=== PATIENT | male | born 1965 | race Caucasian/White ===

== ENCOUNTER 2025-05-31 06:21 | Emergency (ER) | payer MEDICARE, MEDICAID, SELFPAY ==
[2025-05-31 06:23] VITALS: PULSE 75; O2SAT 98; BMI 28.2
[2025-05-31 06:36] VITALS: BP 165/110; PULSE 81; RESP 19; TEMP 36.7; O2SAT 99
--- NOTE | 2025-05-31 06:45 | EDNOTE_ITS ---
ED Extremity Problem RME/HPI General Chief complaint: Extremity Problem,Nontraumatic Stated complaint: LEG PAIN Time Seen by Provider: 05/31/25 06:22 Source: patient Arrival date/time: 05/31/25 06:21 60-year-old male with a history of arthritis presents to the emergency room with a chief complaint of lower extremity joint pain to the knee ankles toes and feet x 1 day Mode of arrival: ambulatory Limitations: no limitations Related Data Previous Rx's ?Medication ?Instructions ?Recorded ibuprofen 800 mg tablet 800 mg PO Q8H #30 tabs 05/31 Allergies Allergy/AdvReac Type Severity Reaction Status Date / Time No Known Allergies Allergy Verified 05/31/25 06:27 Review of Systems Review of Systems Systems Reviewed: All systems reviewed, normal except as documented Constitutional Constitutional: Reports system reviewed and no additional complaints, except as documented, Denies fatigue, Denies fever(s), Denies headache(s) and Denies weakness Eyes Eyes: Reports system reviewed and no additional complaints, except as documented, Denies blurry vision and Denies change in vision ENT Ears, Nose, Mouth, and Throat: Reports system reviewed and no additional complaints, except as documented, Denies otalgia, Denies headache(s), Denies nasal congestion, Denies throat swelling and Denies vertigo Cardiovascular Cardiovascular: Reports system reviewed and no additional complaints, except as documented, Denies chest pain, Denies dyspnea and Denies dyspnea on exertion Respiratory Respiratory: Reports system reviewed and no additional complaints, except as documented, Denies chest congestion, Denies cough, Denies dyspnea, Denies dyspnea on exertion and Denies wheezing Gastrointestinal Gastrointestinal: Reports system reviewed and no additional complaints, except as documented, Denies abdominal pain, Denies cramping, Denies nausea and Denies vomiting Genitourinary Genitourinary: Reports system reviewed and no additional complaints, except as documented, Denies dysuria and Denies hematuria Musculoskeletal Musculoskeletal: Reports system reviewed and no additional complaints, except as documented, Reports arthralgias, Denies back pain, Denies joint swelling, Denies limited range of motion and Denies numbness Integumentary/Breasts Skin/Breast: Reports system reviewed and no additional complaints, except as documented and Denies wounds Neurologic Neurologic: Reports system reviewed and no additional complaints, except as documented, Denies confusion, Denies headache(s), Denies lack of coordination, Denies numbness, Denies vertigo and Denies weakness Psychiatric Psychiatric: Reports system reviewed and no additional complaints, except as documented, Denies anxiety, Denies confusion, Denies depression, Denies paranoia, Denies suicidal ideation and Denies tactile hallucinations Endocrine Endocrine: Reports system reviewed and no additional complaints, except as documented and Denies fatigue Hematologic/Lymphatic Hematologic/Lymphatic: Reports system reviewed and no additional complaints, except as documented and Denies lymphadenopathy Allergic/Immunologic Allergic/Immunologic: Reports system reviewed and no additional complaints, except as documented, Denies throat swelling, Denies urticaria and Denies wheezing Past Medical History Social History SMOKING STATUS: Former smoker ED Exam General Limitations: Present no limitations General appearance: Present alert and in no apparent distress Head Head exam: Present atraumatic Eye Eye exam: Present normal appearance, PERRL and EOMI ENT ENT exam: Present normal exam, normal oropharynx and mucous membranes moist Neck Neck exam: Present normal inspection, full ROM and trachea midline Chest Chest inspection: Present normal inspection and symmetric chest wall rise Respiratory Respiratory exam: Present normal lung sounds bilaterally Cardiovascular Cardiovascular exam: Present regular rate, normal rhythm and normal heart sounds Abdominal Exam Abdominal exam: Present soft and normal bowel sounds Extremities Exam Extremities exam: Present normal inspection and full ROM Expanded Lower Extremity Exam Hip/Pelvis exam: Present normal inspection Upper leg exam: Present normal inspection Knee exam: Present tenderness Lower leg exam: Present tenderness Ankle exam: Present tenderness Foot/toe exam: Present tenderness Gait: observed and normal Back Exam Back exam: Present normal inspection and full ROM Neurological Exam Neurological exam: Present alert, oriented X3 and CN II-XII intact Psychiatric Psychiatric exam: Present normal affect and normal mood Skin Skin exam: Present warm, dry, intact and normal color Course Quality Measures none Orders Category Date Time Status Ketorolac Inj [Toradol Inj] Med 05/31/25 06:45 Discontinued 30 mg IM X1 ONE cloNIDine HCL [Catapres] Med 05/31/25 06:53 Discontinued 0.1 mg PO X1 ONE Vital Signs Vital signs: Vital Signs Temperature 98.1 F 05/31/25 06:36 Pulse Rate 81 05/31/25 06:36 Respiratory Rate 19 05/31/25 06:36 Blood Pressure 165/110 H 05/31/25 06:36 Pulse Oximetry (%) 99 05/31/25 06:36 Oxygen Delivery Method Room Air 05/31/25 06:36 Extremity Problem MDM Narrative MDM Narrative:: 60-year-old male with a history of arthritis presents to the emergency room with a chief complaint of lower extremity joint pain to the knee ankles toes and feet x 1 day Patient is hemodynamically stable and in no apparent distress. There is no redness warmth or swelling to any of his joints. His socks were removed and his feet were observed and there is no complications. Patient denies any trauma. Patient has a normal steady gait Medication was given to the patient and the patient was discharged Patient was discharged and educated to follow-up with primary care provider in the next 24 to 48 hours and return to the emergency room for any evidence of worsening signs or symptoms Patient data External records reviewed:: [facility] previous records Clinical information provided by:: patient Social determinants that could affect healthcare access:: none Patient has the following chronic illnesses:: Arthritis How is presenting disease/condition affected by chronic disease/condition?: exacerbated by Evaluation data The following diagnostics were reviewed and interpreted by me:: lab results and radiology exam(s) Lab and/or radiology exams considered but not ordered:: Labs and radiology exams considered and ordered Interpretation Summary: N/A Medications / Prescriptions Medications or Prescriptions considered but not ordered:: Medication given Medication administrations:: Medication Administration History Discontinued Medications Clonidine (Clonidine Hcl 0.1 Mg Tablet) 0.1 mg PO X1 ONE Stop: 05/31/25 06:54 Last Admin: 05/31/25 07:37 Dose: 0.1 mg Documented By: ARF Ketorolac Tromethamine (Ketorolac Inj 60 Mg/2 Ml Vial) 30 mg IM X1 ONE Stop: 05/31/25 06:46 Last Admin: 05/31/25 07:37 Dose: 30 mg Documented By: ARF Medication given Consultations Consultation(s) initiated? (list below): No Diagnosis Extremity Problem Differential Diagnosis: gout, cellulitis and other (Arthritis) Most likely diagnosis given after review of the tests above:: Arthritis Admission Indicated Admission indicated?: not indicated Admission Request Was there a request for admission?: No Disposition Plan Disposition Plan: Discharge Discharge Attestation Discharge Attestation: The patient and all family members were given an opportunity to ask questions and understood the discharge instructions. Discharge instructions specifically effects, indications for sooner follow up or return to the emergency department, and the expected course of current diagnosis. Patient condition: Stable Discharge Plan Plan Patient Disposition: HOME (Self Care) Discharge Disposition comment: Stable Prescriptions/Referrals Prescriptions/Med Rec: New ibuprofen 800 mg tablet 800 mg PO Q8H Qty: 30 0RF Problem List Clinical Impression: Arthritis Patient/Caregiver Discharge Instructions Print Language: Citizen Of The [place] Stand Alone Forms: Jaye Award Info., Patient Portal Info Letter
[2025-05-31 07:37] VITALS: BP 165/110; PULSE 81
[2025-05-31] MEDS: KETOROLAC INJ 60 MG/2 ML VIAL 30 MG IM (07:37)
== END 2025-05-31 08:43 | disposition home or self-care (01) ==
LOC: SERX 08:26
PROVIDERS: Emergency Provider Nurse Practitioner Family
DX: M19.90 Unspecified osteoarthritis, unspecified site (principal)
CPT/HCPCS: 96372; 99282; J1885; A9270

== ENCOUNTER 2025-06-01 02:34 | Emergency (ER) | payer MEDICARE, MEDICAID, SELFPAY ==
[2025-06-01 02:35] VITALS: BMI 28.2
[2025-06-01 02:45] VITALS: BP 155/91; PULSE 92; RESP 97; TEMP 36.6; O2SAT 97
--- NOTE | 2025-06-01 03:23 | PD.EDBACK ---
ED Back Injury Pain RME/HPI General Chief Complaint: Extremity Problem,Nontraumatic Stated Complaint: LEFT ANKLE, LOWER BACK, AND SHOULDER PAIN Time Seen by Provider: 06/01/25 02:52 Arrival date/time: 06/01/25 02:34 This is a case of 61-year-old male with multiple history of chronic pain to left shoulder left ankle and lower back pain and arthritis patient was here this morning and was treated for arthritis and was discharged with ibuprofen patient came back requested for a stronger medication aside from ibuprofen and Tylenol no injury no trauma denies any numbness weakness tingling sensation denies any incontinence to urine or stool Limitations: no limitations Related Data Previous Rx's ?Medication ?Instructions ?Recorded ibuprofen 800 mg tablet 800 mg PO Q8H #30 tabs 05/31/25 tramadol 50 mg tablet 50 mg PO Q8H PRN pain #8 tabs 06/01/25 Allergies Allergy/AdvReac Type Severity Reaction Status Date / Time No Known Allergies Allergy Verified 06/01/25 02:35 Review of Systems Review of Systems Systems Reviewed: All systems reviewed, normal except as documented Constitutional Constitutional: Reports system reviewed and no additional complaints, except as documented and Reports as per HPI Cardiovascular Cardiovascular: Reports system reviewed and no additional complaints, except as documented and Reports as per HPI Respiratory Respiratory: Reports system reviewed and no additional complaints, except as documented and Reports as per HPI Gastrointestinal Gastrointestinal: Reports system reviewed and no additional complaints, except as documented and Reports as per HPI Musculoskeletal Musculoskeletal: Reports system reviewed and no additional complaints, except as documented and Reports as per HPI Past Medical History Social History SMOKING STATUS: Current every day smoker ED Exam General Limitations: Present no limitations General appearance: Present alert, in no apparent distress and other (Patient is awake alert oriented not in distress nontoxic looking well-hydrated well-nourished) Head Head exam: Present atraumatic, normocephalic and normal inspection Eye Eye exam: Present normal appearance, PERRL and EOMI ENT ENT exam: Present normal exam, normal oropharynx and mucous membranes moist Neck Neck exam: Present normal inspection, full ROM and trachea midline; Absent tenderness, meningismus, lymphadenopathy or thyromegaly Chest Chest inspection: Present normal inspection and symmetric chest wall rise; Absent tenderness Respiratory Respiratory exam: Present normal lung sounds bilaterally; Absent respiratory distress, wheezes, stridor, accessory muscle use or prolonged expiratory phase Cardiovascular Cardiovascular exam: Present regular rate, normal rhythm and normal heart sounds; Absent bradycardia, tachycardia, irregular rhythm, systolic murmur or diastolic murmur Abdominal Exam Abdominal exam: Present soft and normal bowel sounds; Absent distention, tenderness, guarding, rebound, rigidity, diminished bowel sounds, hyperactive bowel sounds, hypoactive bowel sounds or organomegaly Extremities Exam Extremities exam: Present normal inspection and full ROM Expanded Upper Extremity Exam Shoulder exam: Present normal inspection and full ROM; Absent tenderness, swelling, abrasion, laceration, ecchymosis, deformity, crepitus, dislocation, erythema or tenderness over AC joint Expanded Lower Extremity Exam Ankle exam: Present normal inspection and full ROM; Absent tenderness, swelling, abrasion, laceration, ecchymosis, deformity, crepitus, dislocation, erythema, tenderness over talofibular lig or anterior draw sign Back Exam Back exam: Present normal inspection and full ROM; Absent tenderness, CVA tenderness (R), CVA tenderness (L), muscle spasm, paraspinal tenderness, vertebral tenderness, rashes, sciatic notch tenderness (R), sciatic notch tenderness (L), straight leg raise (R) or straight leg raise (L) Neurological Exam Neurological exam: Present alert, oriented X3, CN II-XII intact, normal gait and reflexes normal; Absent motor sensory deficit Psychiatric Psychiatric exam: Present normal affect and normal mood Skin Skin exam: Present warm, dry, intact and normal color Course Quality Measures none Orders Category Date Time Status Ketorolac Inj [Toradol Inj] Med 06/01/25 02:53 Once 30 mg IM X1 ONE Vital Signs Vital signs: Vital Signs Temperature 97.9 F 06/01/25 02:45 Pulse Rate 92 06/01/25 02:45 Respiratory Rate 97 H 06/01/25 02:45 Blood Pressure 155/91 H 06/01/25 02:45 Pulse Oximetry (%) 97 06/01/25 02:45 Oxygen Delivery Method Room Air 06/01/25 02:45 Oxygen saturation is 97% in room air normal Back Pain / Injury MDM Narrative MDM Narrative:: This is a case of 61-year-old male with multiple history of chronic pain to left shoulder left ankle and lower back pain and arthritis patient was here this morning and was treated for arthritis and was discharged with ibuprofen patient came back requested for a stronger medication aside from ibuprofen and Tylenol no injury no trauma denies any numbness weakness tingling sensation denies any incontinence to urine or stool physical examination patient is awake alert oriented not in distress nontoxic looking well-hydrated well-nourished exam on the left ankle left shoulder were normal no tenderness no swelling ROM intact sensory is intact pulses were full and equal capillary refill less than 2 seconds sensory is intact no redness no cellulitis patient exam on lower back is normal no crepitation no deformity ROM intact no lordosis no acute process leg raise exam is normal steady gait patient only wanted pain medication thus patient was given Toradol here in the emergency room and was prescribed only 8 tablets of tramadol patient was advised to follow-up with PCP to be referred to learning disabilities specialist for arthritis and to be referred to pain management for pain control at the time of exam no signs and symptoms of cauda equina patient will be discharged home in stable condition for any worsening symptoms or any emergent concern return precaution in the ER advsied Patient was discharged with comfortable condition walking with stable gait. Patient verbalized no further complains explained diagnosis and answered patient question. Patient is comfortable with the proposed management plan including the need to follow up with his/her primary care physician and any specialist if applicable Discussed patient for any urgent condition or worsening sx, He/She needed to go to emergency room immediately or call 911. Patient acknowledge the responsibility to follow up as instructed and to monitor her/his symptoms. For any persistence of the symptoms for more than 3-5 days return precaution advised. Discussed the result of the test and was given printed discharge instruction Patient data External records reviewed:: [facility] previous records Clinical information provided by:: patient Social determinants that could affect healthcare access:: none Patient has the following chronic illnesses:: None How is presenting disease/condition affected by chronic disease/condition?: no chronic disease Evaluation data The following diagnostics were reviewed and interpreted by me:: other (specify) (None) Lab and/or radiology exams considered but not ordered:: None Interpretation Summary: None Medications / Prescriptions Medications or Prescriptions considered but not ordered:: Given Medication administrations:: Medication Administration History Ketorolac Tromethamine (Ketorolac Inj 60 Mg/2 Ml Vial) 30 mg IM X1 ONE Stop: 06/01/25 02:54 Give Consultations Consultation(s) initiated? (list below): No Diagnosis Differential diagnosis back pain/injury: lumbar radiculopathy, sciatica and strain of lumbar region Most likely diagnosis given after review of the tests above:: Chronic back pain arthritis Admission Indicated Admission indicated?: not indicated Explain why admission is indicated or not indicated:: Not indicated Admission Request Was there a request for admission?: No Admission Attestation Admission request attestation: Not indicated Disposition Plan Disposition Plan: Discharge Discharge Attestation Discharge Attestation: The patient and all family members were given an opportunity to ask questions and understood the discharge instructions. Discharge instructions specifically effects, indications for sooner follow up or return to the emergency department, and the expected course of current diagnosis. Patient condition: Stable Discharge Plan Plan Patient Disposition: HOME (Self Care) Patient condition on transfer: Stable Prescriptions/Referrals Prescriptions/Med Rec: New tramadol 50 mg tablet 50 mg PO Q8H MDD max 4 tabs per day PRN (Reason: pain) Qty: 8 0RF No Action ibuprofen 800 mg tablet 800 mg PO Q8H Qty: 30 0RF Problem List Clinical Impression: Chronic pain, Arthritis Patient/Caregiver Discharge Instructions Education Materials: ED Chronic Pain, Osteoarthritis Additional Instructions: follow-up with your primary care physician in 2 days for reevaluation and to be referred to learning disabilities specialist for further evaluation and treatment of your arthritis and pain management doctor for pain pain control recurrence persistent worsening symptoms or any emergent concern call 911 or go to the nearest emergency room take your medication as directed Print Language: Kiswah[place] Stand Alone Forms: Jaye Award Info., Patient Portal Info Letter PA/NIKI Supervising Physician DYLAN/NIKI Supervising Physician: Dr. Bonilla
[2025-06-01] MEDS: KETOROLAC INJ 60 MG/2 ML VIAL 30 MG IM (03:53)
== END 2025-06-01 04:28 | disposition home or self-care (01) ==
PROVIDERS: Emergency Provider Emergency Medicine
DX: M15.9 Polyosteoarthritis, unspecified (principal)
CPT/HCPCS: 96372; 99282; J1885

== ENCOUNTER 2025-06-02 04:34 | Emergency (ER) | payer MEDICARE, MEDICAID, SELFPAY ==
[2025-06-02 04:42] VITALS: BP 144/85; PULSE 81; RESP 16; TEMP 36.7; O2SAT 98; BMI 28.8
--- NOTE | 2025-06-02 05:30 | EDRME_ITS ---
Rapid Medical Screening Exam RME Arrival date/time: 06/02/25 04:34 60M with history of HTN, alcohol use, and homelessness (recently came here from [place]) presents to ED with BLE numbness and 2 weeks of cough. Patient was here the past 2 days with no work-up. Chief Complaint: General Adult/Misc Complain Vital signs: Vital Signs Temperature 98.0 F 06/02/25 04:42 Pulse Rate 81 06/02/25 04:42 Respiratory Rate 16 06/02/25 04:42 Blood Pressure 144/85 H 06/02/25 04:42 Pulse Oximetry (%) 98 06/02/25 04:42 Oxygen Delivery Method Room Air 06/02/25 04:42 Exam: Disheveled. No open wounds on feet. Normal WOB. Clinical Impression: neuropathy vs DM vs drug use vs alcohol use vs CAP vs URI
--- NOTE | 2025-06-02 05:30 | XR_ITS ---
Upright PA and lateral chest films on 06/02/2025 at 538: Clinical indication 2 weeks of coughing FINDINGS: Heart mediastinum appear radiographically normal the lungs and pleural space are clear normal with the exception of a thin linear strand of discoid atelectasis in the right middle lobe located immediately adjacent to the upper margin of the major fissure. No pleural fluid is seen, no significant abnormality is are seen in the bony thorax. IMPRESSION: 1. There is a thick band of abnormal density slightly anterior to the major fissure in the right middle lobe 2. In view of the patient's symptoms of 2 weeks coughing, this probably represent a minimal area of atelectatic infiltrate. It is also possible it may represent minimal residual infiltrate from a previously slightly larger zone of pneumonia, which of course is not present on today's chest film, in this patient has been coughing for 2 weeks
[2025-06-02 06:15] LABS: Basophils # (Auto) 0.0 Thou/mm3 (0.0-0.2); Basophils % (Auto) 1 % (0-2.5); Eosinophils # (Auto) 0.0 Thou/mm3 (0.0-0.5); Eosinophils % (Auto) 0 % (0-10); Hematocrit 37.2 % (41.0-53.0); Hemoglobin 12.2 g/dL (13.5-16.0); Immature Granulocytes Auto 0.01 Thou/mm3 (0.00-0.00); Lymphocytes # (Auto) 1.8 Thou/mm3 (1.0-4.8); Lymphocytes % (Auto) 24 % (10-50); Mean Corpuscular HGB Conc 32.8 g/dl (31.0-37.0); Mean Corpuscular Hemoglobin 29.7 pg (25.0-35.0); Mean Corpuscular Volume 91 fL (80-100); Monocytes # (Auto) 1.0 Thou/mm3 (0.0-0.8); Monocytes % (Auto) 14 % (0-12); Neutrophils # (Auto) 4.5 Thou/mm3 (1.8-7.7); Neutrophils % (Auto) 61 % (37-80); Nucleated Red Blood Cell # 0.00 Thou/mm3 (0.00-0.00); Nucleated Red Blood Cell % 0 /100 WBC (0); Platelet Count 242 Thou/mm3 (140-440); RDW Standard Deviation 45.2 fL (35.1-43.9); Red Blood Count 4.11 Miln/mm3 (4.50-5.90); White Blood Count 7.4 Thou/mm3 (3.8-10.6)
[2025-06-02 06:35] LABS: Alanine Aminotransferase 16 U/L (10-49); Albumin, Serum 4.8 gm/dL (3.4-4.8); Albumin/Globulin Ratio 2.1 (1.2-2.2); Alcohol, Blood Medical < 3.0 mg/dL (0-10.0); Alkaline Phosphatase 87 U/L (46-116); Anion Gap 11 (7-16); Aspartate Amino Transferase 36 U/L (0-34); BUN/Creatinine Ratio 12 Ratio (12-20); Bilirubin,Total 0.5 mg/dL (0.3-1.2); Blood Urea Nitrogen 12 mg/dL (9-23); Calcium 9.1 mg/dL (8.3-10.6); Calcium (Corrected) 9.1 mg/dL (8.5-10.1); Carbon Dioxide 28.0 mMol/L (20.0-31.0); Chloride 106 mMol/L (98-107); Creatinine (Component) 1.0 mg/dL (0.6-1.3); Estimated Creatinine Clearance 97.7 mL/min (>60); Globulin 2.3 gm/dL (2.3-3.5); Glucose 127 mg/dL (74-106); Osmolality,Calculated 290 (275-295); Potassium 3.7 mMol/L (3.4-5.1); Sodium 145 mMol/L (136-145); Total Protein 7.1 gm/dL (5.7-8.2); eGFR > 60 See Note
[2025-06-02 06:43] LABS: Glucose Estimated Average 105 mg/dL (80-131); Hemoglobin A1C 5.3 % Hgb (4.8-6.0)
[2025-06-02 07:15] VITALS: BP 134/99; PULSE 86; RESP 16; O2SAT 96
[2025-06-02] MEDS: AZITHROMYCIN 250 MG TABLET 500 MG PO (07:58)
[2025-06-02] MEDS: Hydrocortisone Cr 2.5% 30 GM TUBE TOP (07:58)
[2025-06-02 08:48] VITALS: BP 161/87; PULSE 92; RESP 17; TEMP 36.7; O2SAT 99
--- NOTE | 2025-06-02 08:57 | PC.CC ---
Zee Benson was consulted by bedside DAMIÁN Hearn for community resources for patient. Zee BENSON made face to face contact with patient introduced self, role, and reason for visit to patient. He reports he is currently homeless but was staying at a local [facility] that was providing nursing home. Patient reports he would like community resources with nursing home information. [employer] provided patient with [facility] Community Resource Guide that included information to local shelters. Patient informed DAMIÁN Hearn he would like a ride to the post office upon being discharged. RUSSELL provided Dhiraj with information to local [facility] Transportation to set up transportation for patient upon being discharged.
--- NOTE | 2025-06-02 11:46 | EDNOTE_ITS ---
ED General RME/HPI General Chief complaint: General Adult/Misc Complain Stated complaint: BILATERAL LEG CRAMPING, COUGHING Time Seen by Provider: 06/02/25 07:14 Arrival date/time: 06/02/25 04:34 Limitations: no limitations RME / HPI RME / HPI narrative: 06/02/25 04:34 60M with history of HTN, alcohol use, and homelessness (recently came here from [place]) presents to ED with BLE numbness and 2 weeks of cough. Patient was here the past 2 days with no work-up. DR. HORVATH MAIN ED EVALUATION: 60 year old male who is currently homeless with a history of hypertension and arthritis presents to the ED for evaluation of bilateral lower extremity numbness beginning 2 weeks ago. Accompanied by a cramping sensation to both legs and pain to the left knee. Patient additionally complains of a cough beginning 2 weeks ago, lower back pain, and shoulder pain. Denies any fevers, chills, sweats, chest pain, shortness of breath, abdominal pain, n/v/d, or urinary symp toms. Exam: Disheveled. No open wounds on feet. Normal WOB. Impression: neuropathy vs DM vs drug use vs alcohol use vs CAP vs URI Related Data Previous Rx's ?Medication ?Instructions ?Recorded ibuprofen 800 mg tablet 800 mg PO Q8H #30 tabs 05/31 tramadol 50 mg tablet 50 mg PO Q8H PRN pain #8 tab s 06/01/25 azithromycin 500 mg tablet 500 mg PO QDAY 5 days #5 ta bs 06/02/25 gabapentin 300 mg capsule 300 mg PO QDAY NEUROPATHY #3 0 caps 06/02/25 hydrocortisone 2.5 % topical cream 1 applic topical BI D PRN itching 06/02/25 #28 grams Allergies Allergy/AdvReac Type Severity Reaction Status Date / Time No Known Allergies Allergy Verified 06/02/25 04:36 Review of Systems Review of Systems Systems Reviewed: All systems reviewed, normal except as documented Past Medical History Past Medical History CARDIAC: Positive Hypertension ENT: Positive Glaucoma Social History SMOKING STATUS: Current every day smoker ED Exam General Limitations: Present no limitations General appearance: Present alert and in no apparent distress Head Head exam: Present atraumatic, normocephalic and normal inspection Eye Eye exam: Present normal appearance, PERRL and EOMI ENT ENT exam: Present normal exam, normal oropharynx and mucous membranes moist Neck Neck exam: Present normal inspection, full ROM and trachea midline Chest Chest inspection: Present normal inspection and symmetric chest wall rise Respiratory Respiratory exam: Present normal lung sounds bilaterally Cardiovascular Cardiovascular exam: Present regular rate, normal rhythm and normal heart sounds Abdominal Exam Abdominal exam: Present soft and normal bowel sounds Extremities Exam Extremities exam: Present full ROM and other (There is a wart to the plantar aspect of the left foot ) Back Exam Back exam: Present normal inspection and full ROM Neurological Exam Neurological exam: Present alert, oriented X3 and CN II-XII intact Psychiatric Psychiatric exam: Present normal affect and normal mood Skin Skin exam: Present warm, dry, intact and normal color Course Quality Measures none Orders Category Date Time Status XR chest 2V Stat Exams 06/02/25 05:30 Completed A1C [Glycohemoglobin w (eAG)] Stat Lab 06/02/25 06:00 Completed Alcohol, Blood Medical Stat Lab 06/02/25 06:00 Completed CBC Stat Lab 06/02/25 06:00 Completed CMP [Comprehensive Metabolic Panel] Stat Lab 06/02/25 06:00 Completed Drug Screen,Urine Stat Lab 06/02/25 05:30 Ordered Urinalysis, C/S if Indicated Stat Lab 06/02/25 05:30 Ordered Azithromycin Po [Zithromax PO] Med 06/02/25 07:35 Discontinued 500 mg PO X1 ONE Hydrocortisone Cr 2.5% Med 06/02/25 07:35 Discontinued See Dose Instructions TOP X1 ONE Referral Marketing Research Coordinator NOW SS 06/02/25 07:36 Completed Vital Signs Vital signs: Vital Signs Temperature 98.0 F 06/02/25 04:42 Pulse Rate 81 06/02/25 04:42 Respiratory Rate 16 06/02/25 04:42 Blood Pressure 144/85 H 06/02/25 04:42 Pulse Oximetry (%) 98 06/02/25 04:42 Oxygen Delivery Method Room Air 06/02/25 04:42 Pulse ox is 98% on room air which is adequate. Discharge Plan Plan Patient Disposition: HOME (Self Care) Patient condition on transfer: Stable Prescriptions/Referrals Prescriptions/Med Rec: New gabapentin 300 mg capsule 300 mg PO QDAY MDD 1 Qty: 30 0RF hydrocortisone 2.5 % cream 1 applic topical BID MDD 2 APPLICATIONS PRN (Reason: itching) Qty: 28 0RF azithromycin 500 mg tablet 500 mg PO QDAY 5 Days Qty: 5 0RF No Action ibuprofen 800 mg tablet 800 mg PO Q8H Qty: 30 0RF tramadol 50 mg tablet 50 mg PO Q8H MDD max 4 tabs per day PRN (Reason: pain) Qty: 8 0RF Problem List Clinical Impression: Neuropathy, Plantar wart of left foot, Bronchitis Patient/Caregiver Discharge Instructions Discharge Activity: activity as tolerated Education Materials: What Is Peripheral Neuropathy, Understanding Plantar Warts, ED Upper Resp Infec Abx Tx, ED Neuropathy, Peripheral, ED Plantar Warts Additional Instructions: Follow-up with your doctor as scheduled. Take medications as prescribed. Print Language: [place] Stand Alone Forms: Jaye Award Info., Patient Portal Info Letter MDM Narrative MDM hospital course (for use when minimal MDM required): Josie Dubose am scribing for and in the presence of Dr. Horvath. Patient remains clinically stable throughout the emergency department visit. tax services professional was consulted and provided the patient with resources. We reviewed all the results, analysis, and treatment plans. Patient is amenable to discharge. Strict return precautions were outlined. Clinical Information Provided by: patient Medical Records reviewed [facility] Meds/Rx considered, not ordered None Labs/Rad/Tests considered, not ordered None Chronic Illness/Social Conditions which may negatively complicate care or outcome(s)-explain: Homeless EKG EKG not done Labs Lab(s) Interpretation(s): CBC and CMP with no acute findings Imaging Imaging Interpretation(s): Ordering Physician: Anselmo Pope PA-C Date of Service: 06/02/25 Procedure(s): XR chest 2V Accession Number(s): [id number] cc: Woo Fountain MD; NO PRIMARY/FAMILY,PHYSICIAN; Anselmo Pope PA-C~ Upright PA and lateral chest films on 06/02/2025 at 538: Clinical indication 2 weeks of coughing FINDINGS: Heart mediastinum appear radiographically normal the lungs and pleural space are clear normal with the exception of a thin linear strand of discoid atelectasis in the right middle lobe located immediately adjacent to the upper margin of the major fissure. No pleural fluid is seen, no significant abnormality is are seen in the bony thorax. IMPRESSION: 1. There is a thick band of abnormal density slightly anterior to the major fissure in the right middle lobe 2. In view of the patient's symptoms of 2 weeks coughing, this probably represent a minimal area of atelectatic infiltrate. It is also possible it may represent minimal residual infiltrate from a previously slightly larger zone of pneumonia, which of course is not present on today's chest film, in this patient has been coughing for 2 weeks Dictated By: Woo Fountain MD Signed By: <Electronically signed by Woo Fountain MD in OV> 06/02/25 0820 Medication Administration(s) Medication Administration History Discontinued Medications Azithromycin (Azithromycin 250 Mg Tablet) 500 mg PO X1 ONE Stop: 06/02/25 07:36 Last Admin: 06/02/25 07:58 Dose: 500 mg Documented By: EF Hydrocortisone (Hydrocortisone Cr 2.5% 30 Gm Tube) 0 gm TOP X1 ONE Stop: 06/02/25 07:36 Last Admin: 06/02/25 07:58 Dose: 30 gm Documented By: EF Comments: applied to left foot See above Diagnosis Diagnoses ruled out and/or further discussions: Neuropathy Plantar wart of left foot Bronchitis
== END 2025-06-02 09:02 | disposition home or self-care (01) ==
LOC: SERX 08:23
PROVIDERS: Physician Assistant; Emergency Provider Family Medicine
DX: J40 Bronchitis, not specified as acute or chronic (principal); G62.9 Polyneuropathy, unspecified; B07.0 Plantar wart; I10 Essential (primary) hypertension; Z59.00 Homelessness unspecified; M19.90 Unspecified osteoarthritis, unspecified site
CPT/HCPCS: 36415; 71046; 80053; 80307; 80320; 81001; 83036; 85025; 99283; A9270; G0480

== ENCOUNTER 2025-06-03 11:11 | Emergency (ER) | payer MEDICARE, MEDICAID, SELFPAY ==
[2025-06-03 11:12] VITALS: PULSE 104; RESP 18; O2SAT 97
[2025-06-03 11:14] VITALS: BP 138/93; PULSE 99; RESP 18; TEMP 36.4; O2SAT 95; BMI 28.1
[2025-06-03 11:37] VITALS: BP 126/71; PULSE 85; RESP 19; TEMP 36.8; O2SAT 97; BMI 29.5
--- NOTE | 2025-06-03 11:37 | EDNOTE_ITS ---
Upper Respiratory Inf. RME/HPI General Chief Complaint: Flu Like Symptoms Stated Complaint: BODY PAIN Time Seen by Provider: 06/03/25 11:26 Arrival date/time: 06/03/25 11:11 60-year-old male presents to the department for complaint of generalized bodyaches patient was evaluated yesterday had a full workup patient is homeless. Patient ports he has not picked up his prescriptions Limitations: no limitations Related Data Previous Rx's ?Medication ?Instructions ?Recorded ibuprofen 800 mg tablet 800 mg PO Q8H #30 tabs 05/31 tramadol 50 mg tablet 50 mg PO Q8H PRN pain #8 tab s 06/01/25 azithromycin 500 mg tablet 500 mg PO QDAY 5 days #5 ta bs 06/02/25 gabapentin 300 mg capsule 300 mg PO QDAY NEUROPATHY #3 0 caps 06/02/25 hydrocortisone 2.5 % topical cream 1 applic topical BI D PRN itching 06/02/25 #28 grams Allergies Allergy/AdvReac Type Severity Reaction Status Date / Time No Known Allergies Allergy Verified 06/03/25 15:20 Review of Systems Review of Systems Systems Reviewed: All systems reviewed, normal except as documented Constitutional Constitutional: Reports system reviewed and no additional complaints, except as documented, Denies fever(s) and Denies headache(s) Eyes Eyes: Reports system reviewed and no additional complaints, except as documented and Denies blurry vision ENT Ears, Nose, Mouth, and Throat: Reports system reviewed and no additional complaints, except as documented, Denies headache(s), Denies nasal congestion and Denies nasal discharge Cardiovascular Cardiovascular: Reports system reviewed and no additional complaints, except as documented, Denies chest pain and Denies dyspnea Respiratory Respiratory: Reports system reviewed and no additional complaints, except as documented, Reports chest congestion, Reports cough and Denies dyspnea Gastrointestinal Gastrointestinal: Reports system reviewed and no additional complaints, except as documented and Denies abdominal pain Integumentary/Breasts Skin/Breast: Reports system reviewed and no additional complaints, except as documented and Denies rash Neurologic Neurologic: Reports system reviewed and no additional complaints, except as documented, Reports as per HPI and Denies headache(s) Past Medical History Past Medical History CARDIAC: Positive Hypertension; Negative Congestive Heart Failure RESPIRATORY: Negative Chronic Obstructive Pulmonary Disease (COPD) GENITOURINARY: Negative Renal Disease ENT: Positive Glaucoma ENDOCRINE: Negative Diabetes Mellitus Type 1 or Diabetes Mellitus Type 2 Social History SMOKING STATUS: Current every day smoker ED Exam General Limitations: Present no limitations General appearance: Present alert and in no apparent distress Head Head exam: Present atraumatic, normocephalic and normal inspection Eye Eye exam: Present normal appearance, PERRL and EOMI; Absent conjunctival injection ENT ENT exam: Present normal exam, normal oropharynx and mucous membranes moist Neck Neck exam: Present normal inspection, full ROM and trachea midline Chest Chest inspection: Present normal inspection and symmetric chest wall rise Respiratory Respiratory exam: Present normal lung sounds bilaterally; Absent respiratory distress Cardiovascular Cardiovascular exam: Present regular rate, normal rhythm and normal heart sounds Abdominal Exam Abdominal exam: Present soft and normal bowel sounds; Absent distention, tenderness, guarding, rebound or rigidity Extremities Exam Extremities exam: Present normal inspection and full ROM Back Exam Back exam: Present normal inspection and full ROM Neurological Exam Neurological exam: Present alert, oriented X3 and CN II-XII intact Psychiatric Psychiatric exam: Present normal affect and normal mood Skin Skin exam: Present warm, dry, intact and normal color Course Quality Measures none Orders Category Date Time Status Lidocaine 1% Vial 20 ml [Xylocaine 1% 20 ML] Med 06/03/25 11:35 Discontinued 2.1 ml INFL X1 ONE Metoclopramide Inj [Reglan Inj] Med 06/03/25 11:35 Discontinued 10 mg IM X1 ONE cefTRIAXone [Rocephin] Med 06/03/25 11:35 Discontinued 1,000 mg IM X1 ONE Vital Signs Vital signs: Vital Signs Temperature 97.5 F 06/03/25 11:14 Pulse Rate 99 06/03/25 11:14 Respiratory Rate 18 06/03/25 11:14 Blood Pressure 138/93 H 06/03/25 11:14 Pulse Oximetry (%) 95 06/03/25 11:14 Oxygen Delivery Method Room Air 06/03/25 11:14 O2 saturation 95% room air within normal limits Upper Respiratory Infection MDM Narrative MDM Narrative:: 60-year-old male presents to the department for complaint of generalized bodyaches patient was evaluated yesterday had a full workup patient is homeless. Patient ports he has not picked up his prescriptions Clinically well-appearing does not appear ill or toxic no acute distress I reviewed the patient's lab work and imaging from yesterday X-ray appears to show pneumonia patient reports he did not mushroom picker his antibiotics and patient is here in [place] therefore patient given injection of antibiotics patient also reports nausea therefore patient given nausea medication Clinically well-appearing does not appear ill or toxic at time of discharge Patient discharged home in no distress to follow-up with primary care doctor in the next 24 to 48 hours and for any worsening symptoms to return to the ER immediately Patient data External records reviewed:: [facility] previous records Clinical information provided by:: patient Social determinants that could affect healthcare access:: alcohol use Patient has the following chronic illnesses:: See history How is presenting disease/condition affected by chronic disease/condition?: caused by Evaluation data The following diagnostics were reviewed and interpreted by me:: lab results and radiology exam(s) Lab and/or radiology exams considered but not ordered:: Labs and radiology reviewed from previous visit Interpretation Summary: Reviewed by me Medications / Prescriptions Medications or Prescriptions considered but not ordered:: Given Medication administrations:: Medication Administration History Discontinued Medications Ceftriaxone Sodium (Ceftriaxone Sod Inj 1,000 Mg Vial) 1,000 mg IM X1 ONE Stop: 06/03/25 11:36 Last Admin: 06/03/25 12:07 Dose: 1,000 mg Documented By: Lidocaine HCl (Lidocaine Hcl 1% 20 Ml Vial) 2.1 ml INFL X1 ONE Stop: 06/03/25 11:36 Last Admin: 06/03/25 12:07 Dose: 2.1 ml Documented By: Metoclopramide HCl (Metoclopramide Inj 5 Mg/Ml Vial 2 Ml) 10 mg IM X1 ONE; Protocol Stop: 06/03/25 11:36 Last Admin: 06/03/25 12:07 Dose: 10 mg Documented By: Given Consultations Consultation(s) initiated? (list below): No Diagnosis Upper Respiratory Differential Diagnosis: upper respiratory infection, viral infection and bronchitis Most likely diagnosis given after review of the tests above:: URI Admission Indicated Admission indicated?: not indicated Admission Request Was there a request for admission?: No Disposition Plan Disposition Plan: Discharge Discharge Attestation Discharge Attestation: The patient and all family members were given an opportunity to ask questions and understood the discharge instructions. Discharge instructions specifically effects, indications for sooner follow up or return to the emergency department, and the expected course of current diagnosis. Patient condition: Stable Discharge Plan Plan Patient Disposition: HOME (Self Care) Discharge Disposition comment: Stable Prescriptions/Referrals Prescriptions/Med Rec: No Action ibuprofen 800 mg tablet 800 mg PO Q8H Qty: 30 0RF tramadol 50 mg tablet 50 mg PO Q8H MDD max 4 tabs per day PRN (Reason: pain) Qty: 8 0RF gabapentin 300 mg capsule 300 mg PO QDAY MDD 1 Qty: 30 0RF hydrocortisone 2.5 % cream 1 applic topical BID MDD 2 APPLICATIONS PRN (Reason: itching) Qty: 28 0RF azithromycin 500 mg tablet 500 mg PO QDAY 5 Days Qty: 5 0RF Problem List Clinical Impression: Nausea & vomiting, Cough, Alcohol abuse Patient/Caregiver Discharge Instructions Education Materials: ED Vomiting (Adult) Additional Instructions: Please follow up with your primary care doctor in the next 24-48hrs for any worsening symptoms return here immediately Print Language: Emir[place] Stand Alone Forms: Jaye Award Info., Patient Portal Info Letter PA/VICE CHANCELLOR Supervising Physician PA/VICE CHANCELLOR Supervising Physician: Dr. gant
[2025-06-03] MEDS: cefTRIAXone SOD INJ 1,000 MG VIAL 1000 MG IM (12:07)
[2025-06-03] MEDS: METOCLOPRAMIDE INJ 5 MG/ML VIAL 2 ML 10 MG IM (12:07)
[2025-06-03] MEDS: LIDOCAINE HCL 1% 20 ML VIAL 2.1 ML INFL (12:07)
== END 2025-06-03 14:05 | disposition home or self-care (01) ==
LOC: SERX 13:09
PROVIDERS: Emergency Provider Family Medicine
DX: R11.2 Nausea with vomiting, unspecified (principal); R05.9 Cough, unspecified; F10.10 Alcohol abuse, uncomplicated; Z59.00 Homelessness unspecified
CPT/HCPCS: 96372; 99282; J0696; J2765; J3490

== ENCOUNTER 2025-06-03 15:15 | Emergency (ER) | payer MEDICARE, MEDICAID, SELFPAY ==
[2025-06-03 15:17] VITALS: PULSE 74; RESP 17; O2SAT 98
[2025-06-03 15:53] VITALS: BP 157/82; PULSE 98; RESP 18; TEMP 36.6; O2SAT 98
--- NOTE | 2025-06-03 16:26 | PD.EDEYE ---
ED Eye Problem RME/HPI General Chief complaint: Eye Problems Stated complaint: HTN, wants eye drops Time Seen by Provider: 06/03/25 15:19 Arrival date/time: 06/03/25 15:15 60-year-old homeless male seen by myself earlier in the day presents to the emergency department today requesting eyedrops for dry eyes and a refill on his hypertension medications. Patient reports no chest pain or shortness of breath no headache dizziness weakness at this time Limitations: no limitations Related Data Previous Rx's ?Medication ?Instructions ?Recorded ibuprofen 800 mg tablet 800 mg PO Q8H #30 tabs 05/31/25 Held on 06/08/25. Instructions: Resume on 06/08/25. This medication can worsen gastritis and may lead to abdominal ulcer. Please discuss with your PCP prior to resuming this medication. tramadol 50 mg tablet 50 mg PO Q8H PRN pain #8 tabs 06/01/25 gabapentin 300 mg capsule 300 mg PO QDAY NEUROPATHY #30 caps 06/02/25 hydrocortisone 2.5 % topical cream 1 applic topical BID PRN itching 06/02/25 #28 grams dorzolamide-timolol (PF) 2 %-0.5 % 1 drp ophthalmic (eye) BID #60 ea 06/05/25 eye drops in a dropperette aluminum-mag hydroxide-simethicone 5 ml PO QID PRN indigestion #3,000 06/08/25 400 mg-400 mg-40 mg/5 mL oral susp mL (Maalox Maximum Strength) pantoprazole 40 mg tablet,delayed 40 mg PO QDAY #30 tabs 06/08/25 release (Protonix) Allergies Allergy/AdvReac Type Severity Reaction Status Date / Time No Known Allergies Allergy Verified 06/07/25 17:36 Review of Systems Review of Systems Systems Reviewed: All systems reviewed, normal except as documented Constitutional Constitutional: Reports system reviewed and no additional complaints, except as documented, Denies fever(s) and Denies headache(s) Eyes Eyes: Reports system reviewed and no additional complaints, except as documented and Denies blurry vision ENT Ears, Nose, Mouth, and Throat: Reports system reviewed and no additional complaints, except as documented, Denies headache(s), Denies nasal congestion and Denies nasal discharge Cardiovascular Cardiovascular: Reports system reviewed and no additional complaints, except as documented, Denies chest pain and Denies dyspnea Respiratory Respiratory: Reports system reviewed and no additional complaints, except as documented, Denies chest congestion, Denies cough and Denies dyspnea Gastrointestinal Gastrointestinal: Reports system reviewed and no additional complaints, except as documented and Denies abdominal pain Integumentary/Breasts Skin/Breast: Reports system reviewed and no additional complaints, except as documented and Denies rash Neurologic Neurologic: Reports system reviewed and no additional complaints, except as documented, Reports as per HPI and Denies headache(s) Past Medical History Past Medical History CARDIAC: Positive Hypertension; Negative Congestive Heart Failure RESPIRATORY: Negative Chronic Obstructive Pulmonary Disease (COPD) GENITOURINARY: Negative Renal Disease ENT: Positive Glaucoma ENDOCRINE: Negative Diabetes Mellitus Type 1 or Diabetes Mellitus Type 2 Social History SMOKING STATUS: Current every day smoker ED Exam General Limitations: Present no limitations General appearance: Present alert and in no apparent distress Head Head exam: Present atraumatic Eye Eye exam: Present normal appearance, PERRL and EOMI ENT ENT exam: Present normal exam, normal oropharynx and mucous membranes moist Neck Neck exam: Present normal inspection, full ROM and trachea midline Chest Chest inspection: Present normal inspection and symmetric chest wall rise Respiratory Respiratory exam: Present normal lung sounds bilaterally Cardiovascular Cardiovascular exam: Present regular rate, normal rhythm and normal heart sounds Abdominal Exam Abdominal exam: Present soft and normal bowel sounds Extremities Exam Extremities exam: Present normal inspection and full ROM Back Exam Back exam: Present normal inspection and full ROM Neurological Exam Neurological exam: Present alert, oriented X3 and CN II-XII intact Psychiatric Psychiatric exam: Present normal affect and normal mood Skin Skin exam: Present warm, dry, intact and normal color Course Quality Measures none Vital Signs Vital signs: Vital Signs Temperature 98 F 06/03/25 15:53 Pulse Rate 98 06/03/25 15:53 Respiratory Rate 18 06/03/25 15:53 Blood Pressure 157/82 H 06/03/25 15:53 Pulse Oximetry (%) 98 06/03/25 15:53 Oxygen Delivery Method Room Air 06/03/25 15:53 O2 saturation 98% room air within normal limits Eye MDM Narrative MDM Narrative:: 60-year-old homeless male seen by myself earlier in the day presents to the emergency department today requesting eyedrops for dry eyes and a refill on his hypertension medications. Patient reports no chest pain or shortness of breath no headache dizziness weakness at this time Clinically patient well-appearing does not appear look toxic Patient is given food and coffee and a place to stay for couple of hours Patient then for further care Explained to patient needs to follow-up with his PCP for further evaluation at this time is no acute emergent findings Patient discharged home in no distress to follow-up with primary care doctor in the next 24 to 48 hours and for any worsening symptoms to return to the ER immediately Patient data External records reviewed:: [facility] previous records Clinical information provided by:: patient Social determinants that could affect healthcare access:: housing Patient has the following chronic illnesses:: Alcohol abuse, drug abuse, homelessness How is presenting disease/condition affected by chronic disease/condition?: caused by Evaluation data The following diagnostics were reviewed and interpreted by me:: other (specify) Lab and/or radiology exams considered but not ordered:: Considered not ordered Interpretation Summary: N/A Medications / Prescriptions Medications or Prescriptions considered but not ordered:: Given no meds Medication administrations:: No meds Consultations Consultation(s) initiated? (list below): No Diagnosis Eye Problem Differential Diagnosis: other (Homelessness, drug abuse,) Most likely diagnosis given after review of the tests above:: Homelessness Admission Indicated Admission indicated?: not indicated Admission Request Was there a request for admission?: No Disposition Plan Disposition Plan: Discharge Discharge Attestation Discharge Attestation: The patient and all family members were given an opportunity to ask questions and understood the discharge instructions. Discharge instructions specifically effects, indications for sooner follow up or return to the emergency department, and the expected course of current diagnosis. Patient condition: Stable Discharge Plan Plan Patient Disposition: HOME (Self Care) Discharge Disposition comment: Stable Prescriptions/Referrals Prescriptions/Med Rec: No Action ibuprofen 800 mg tablet 800 mg PO Q8H Qty: 30 0RF dorzolamide-timolol (PF) 2-0.5 % dropperette 1 drp ophthalmic (eye) BID Qty: 60 0RF tramadol 50 mg tablet 50 mg PO Q8H MDD max 4 tabs per day PRN (Reason: pain) Qty: 8 0RF gabapentin 300 mg capsule 300 mg PO QDAY MDD 1 Qty: 30 0RF hydrocortisone 2.5 % cream 1 applic topical BID MDD 2 APPLICATIONS PRN (Reason: itching) Qty: 28 0RF pantoprazole [Protonix] 40 mg tablet,delayed release (DR/EC) 40 mg PO QDAY Qty: 30 0RF Rx Instructions: Take one tablet daily regardless of your symptoms. alum-mag hydroxide-simeth [Maalox Maximum Strength] 400-400-40 mg/5 mL suspension 5 ml PO QID PRN (Reason: indigestion) Qty: 3000 0RF Rx Instructions: Take 5 mL every 5 hours as needed for abdominal pain. Referrals: No Primary/Family,Physician [Primary Care Provider] - In 1 week Problem List Clinical Impression: Homelessness Patient/Caregiver Discharge Instructions Additional Instructions: Please follow up with your primary care doctor in the next 24-48hrs for any worsening symptoms return here immediately Print Language: Greenlandic Stand Alone Forms: Jaye Award Info., Patient Portal Info Letter PA/MEDICAL ASSISTANT PRN Supervising Physician PA/MEDICAL ASSISTANT PRN Supervising Physician: Dr gant
== END 2025-06-03 18:35 | disposition home or self-care (01) ==
PROVIDERS: Emergency Provider Family Medicine
DX: R68.89 Other general symptoms and signs (principal); Z59.00 Homelessness unspecified
CPT/HCPCS: 99281

== ENCOUNTER 2025-06-04 23:04 | Emergency (ER) | payer MEDICARE, MEDICAID, SELFPAY ==
[2025-06-04 23:05] VITALS: BP 148/83; PULSE 72; RESP 18; TEMP 36.9; O2SAT 94
[2025-06-04 23:13] VITALS: PULSE 90; O2SAT 98; BMI 28.3
--- NOTE | 2025-06-04 23:58 | PD.EDBACK ---
ED Back Injury Pain RME/HPI General Chief Complaint: Back Pain/Injury Stated Complaint: BODY ACHES/PAIN Time Seen by Provider: 06/04/25 23:53 Source: patient Arrival date/time: 06/04/25 23:04 Mode of arrival: ambulatory Limitations: no limitations RME / HPI RME / HPI Narrative: This patient is a 60-year-old male who was not in for evaluation of back pain today but rather, request assistance with eyedrop medications for his glaucoma concerns as well as some medical resources for follow-up. Patient states he does not have his medication and does not have a local doctor. Patient denies any fever nausea or vomiting. Vital signs were stable arrival. Related Data Previous Rx's ?Medication ?Instructions ?Recorded ibuprofen 800 mg tablet 800 mg PO Q8H #30 tabs 05/31/25 tramadol 50 mg tablet 50 mg PO Q8H PRN pain #8 tabs 06/01/25 azithromycin 500 mg tablet 500 mg PO QDAY 5 days #5 tabs 06/02/25 gabapentin 300 mg capsule 300 mg PO QDAY NEUROPATHY #30 caps 06/02/25 hydrocortisone 2.5 % topical cream 1 applic topical BID PRN itching 06/02/25 #28 grams dorzolamide-timolol (PF) 2 %-0.5 % 1 drp ophthalmic (eye) BID #60 ea 06/05/25 eye drops in a dropperette Allergies Allergy/AdvReac Type Severity Reaction Status Date / Time No Known Allergies Allergy Verified 06/03/25 15:20 Review of Systems Review of Systems Systems Reviewed: All systems reviewed, normal except as documented Past Medical History Past Medical History CARDIAC: Positive Hypertension; Negative Congestive Heart Failure RESPIRATORY: Negative Chronic Obstructive Pulmonary Disease (COPD) GENITOURINARY: Negative Renal Disease ENT: Positive Glaucoma ENDOCRINE: Negative Diabetes Mellitus Type 1 or Diabetes Mellitus Type 2 Social History SMOKING STATUS: Never smoker ED Exam Narrative Physical exam: Patient was in no distress at time of evaluation. General Limitations: Present no limitations General appearance: Present alert and in no apparent distress Head Head exam: Present atraumatic Eye Eye exam: Present normal appearance, PERRL, EOMI and other (Bilateral eye evaluation was relatively unremarkable. Possible cataract formation in the left eye. IOP in right eye was 13 and left eye was 14.) ENT ENT exam: Present normal exam, normal oropharynx and mucous membranes moist Neck Neck exam: Present normal inspection, full ROM and trachea midline Chest Chest inspection: Present normal inspection and symmetric chest wall rise Respiratory Respiratory exam: Present normal lung sounds bilaterally Cardiovascular Cardiovascular exam: Present regular rate, normal rhythm and normal heart sounds Abdominal Exam Abdominal exam: Present soft and normal bowel sounds Extremities Exam Extremities exam: Present normal inspection and full ROM Back Exam Back exam: Present normal inspection and full ROM Neurological Exam Neurological exam: Present alert, oriented X3 and CN II-XII intact Psychiatric Psychiatric exam: Present normal affect and normal mood Skin Skin exam: Present warm, dry, intact and normal color Course Quality Measures none Vital Signs Vital signs: Vital Signs Temperature 98.4 F 06/04/25 23:05 Pulse Rate 72 06/04/25 23:05 Respiratory Rate 18 06/04/25 23:05 Blood Pressure 148/83 H 06/04/25 23:05 Pulse Oximetry (%) 94 L 06/04/25 23:05 As noted above Back Pain / Injury MDM Narrative MDM Narrative:: Advised patient that I will prescribe him his dorzolamide and timolol ophthalmic drops to address his glaucoma concerns. Patient was provided with some food and additionally, patient was provided with some medical resources for follow-up. Patient data External records reviewed:: [facility] previous records Clinical information provided by:: patient Social determinants that could affect healthcare access:: none Patient has the following chronic illnesses:: Glaucoma How is presenting disease/condition affected by chronic disease/condition?: caused by Evaluation data The following diagnostics were reviewed and interpreted by me:: other (specify) Lab and/or radiology exams considered but not ordered:: None Interpretation Summary: None Medications / Prescriptions Medications or Prescriptions considered but not ordered:: None Medication administrations:: None Consultations Consultation(s) initiated? (list below): No Diagnosis Differential diagnosis back pain/injury: other (Glaucoma) Most likely diagnosis given after review of the tests above:: Glaucoma Admission Indicated Admission indicated?: not indicated Explain why admission is indicated or not indicated:: Unwarranted Admission Request Was there a request for admission?: No Disposition Plan Disposition Plan: Discharge Discharge Attestation Discharge Attestation: The patient and all family members were given an opportunity to ask questions and understood the discharge instructions. Discharge instructions specifically effects, indications for sooner follow up or return to the emergency department, and the expected course of current diagnosis. Patient condition: Stable Discharge Plan Plan Patient Disposition: HOME (Self Care) Prescriptions/Referrals Prescriptions/Med Rec: New dorzolamide-timolol (PF) 2-0.5 % dropperette 1 drp ophthalmic (eye) BID Qty: 60 0RF No Action ibuprofen 800 mg tablet 800 mg PO Q8H Qty: 30 0RF tramadol 50 mg tablet 50 mg PO Q8H MDD max 4 tabs per day PRN (Reason: pain) Qty: 8 0RF gabapentin 300 mg capsule 300 mg PO QDAY MDD 1 Qty: 30 0RF hydrocortisone 2.5 % cream 1 applic topical BID MDD 2 APPLICATIONS PRN (Reason: itching) Qty: 28 0RF azithromycin 500 mg tablet 500 mg PO QDAY 5 Days Qty: 5 0RF Problem List Clinical Impression: Glaucoma Patient/Caregiver Discharge Instructions Education Materials: Treating Glaucoma Additional Instructions: Advised patient lites medication as directed and additionally, patient needs to establish a long-term provider to address his glaucoma concerns. Print Language: Hungarian Stand Alone Forms: Jaye Award Info., Patient Portal Info Letter
[2025-06-05 00:59] VITALS: PULSE 67; RESP 18; TEMP 36.3; O2SAT 97
== END 2025-06-05 00:59 | disposition home or self-care (01) ==
LOC: SERX 06-05 02:30
PROVIDERS: Emergency Provider Emergency Medicine
DX: H40.9 Unspecified glaucoma (principal)
CPT/HCPCS: 99281

== ENCOUNTER 2025-06-05 04:58 | Emergency (ER) | payer MEDICARE, MEDICAID, SELFPAY ==
[2025-06-05 04:58] VITALS: BMI 25.8
[2025-06-05 05:17] VITALS: BP 126/84; PULSE 69; RESP 18; TEMP 36.4; O2SAT 97
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
[2025-06-05 07:01] VITALS: TEMP 36.7
[2025-06-05] MEDS: ACETAMINOPHEN 500 MG TABLET 1000 MG PO (07:01)
[2025-06-05 07:02] VITALS: TEMP 36.7
[2025-06-05] MEDS: IBUPROFEN TAB 400 MG TABLET 800 MG PO (07:02)
[2025-06-05 07:05] VITALS: TEMP 36.7
== END 2025-06-05 07:05 | disposition home or self-care (01) ==
LOC: SERX 07:22
PROVIDERS: Emergency Provider Nurse Practitioner Family
DX: M25.561 Pain in right knee (principal); M25.562 Pain in left knee; M54.50 Low back pain, unspecified; G89.29 Other chronic pain; Z59.01 Sheltered homelessness
CPT/HCPCS: 99281; A9270

== ENCOUNTER 2025-06-07 17:02 | Emergency (ER) | payer MEDICARE, MEDICAID, SELFPAY ==
[2025-06-07 17:07] VITALS: BP 157/92; PULSE 77; RESP 18; TEMP 36.6; O2SAT 98
[2025-06-07 17:37] VITALS: PULSE 68; RESP 18; O2SAT 97
--- NOTE | 2025-06-07 18:50 | XR_ITS ---
Examination: CT abdomen and pelvis without contrast. Coronal 3-D reconstructions. Sagittal 2-D reconstructions. Date and time of exam: June 07, 2025, 1907 hours INDICATIONS: Abdominal pain onset today CTDI: vol (mGy): 7.42 DLP: (mGycm): 447 Technique: Axial images of the abdomen have been obtained, 3 mm slice thickness Intravenous contrast material has not been administered. Low dose protocols were performed. One or more of the following dose reduction techniques were used; automated exposure control, adjustment of the mA and/or KV according to patient size, use of iterative reconstruction technique. Findings: No visualized liver or splenic lesion No definite gallstones No pancreatic or adrenal mass No renal or ureteral calculi, no hydronephrosis Normal appendix Aorta normal size No bowel obstruction 16 mm fat-containing umbilical hernia No diverticulitis Mildly distended urinary bladder AP prostate dimension 4.4 cm No bladder mass or bladder calculi Advanced degenerative disc disease L1-L2 IMPRESSION: No renal or ureteral calculi, no hydronephrosis Normal appendix 16 mm fat-containing umbilical hernia Mild to moderate prostatomegaly, mildly distended urinary bladder No bladder mass or bladder calculi Advanced degenerative disc disease L1-L2
--- NOTE | 2025-06-07 18:50 | PD.EDRME ---
Rapid Medical Screening Exam RME Arrival date/time: 06/07/25 17:02 This is a case of 61-year-old male with no medical history came into the emergency room due to abdominal pain nausea vomiting for 3 days worsening of the symptoms this patient decided to sought consult here in the emergency room Chief Complaint: Abdominal Pain Time Seen by Provider: 06/07/25 18:44 Vital signs: Vital Signs Temperature 97.8 F 06/07/25 17:07 Pulse Rate 77 06/07/25 17:07 Respiratory Rate 18 06/07/25 17:07 Blood Pressure 157/92 H 06/07/25 17:07 Pulse Oximetry (%) 98 06/07/25 17:07 Oxygen Delivery Method Room Air 06/07/25 17:07 Exam: Abdominal exam mild to moderate tenderness periumbilical area no guarding no rebound no rigidity Clinical Impression: Abdominal pain
[2025-06-07 20:10] LABS: Collection Type, Urine Clean Catch
[2025-06-07 20:18] LABS: Basophils # (Auto) 0.0 Thou/mm3 (0.0-0.2); Basophils % (Auto) 1 % (0-2.5); Eosinophils # (Auto) 0.4 Thou/mm3 (0.0-0.5); Eosinophils % (Auto) 5 % (0-10); Hematocrit 39.3 % (41.0-53.0); Hemoglobin 12.9 g/dL (13.5-16.0); Immature Granulocytes Auto 0.01 Thou/mm3 (0.00-0.00); Lymphocytes # (Auto) 2.0 Thou/mm3 (1.0-4.8); Lymphocytes % (Auto) 26 % (10-50); Mean Corpuscular HGB Conc 32.8 g/dl (31.0-37.0); Mean Corpuscular Hemoglobin 30.6 pg (25.0-35.0); Mean Corpuscular Volume 93 fL (80-100); Monocytes # (Auto) 0.6 Thou/mm3 (0.0-0.8); Monocytes % (Auto) 9 % (0-12); Neutrophils # (Auto) 4.5 Thou/mm3 (1.8-7.7); Neutrophils % (Auto) 60 % (37-80); Nucleated Red Blood Cell # 0.00 Thou/mm3 (0.00-0.00); Nucleated Red Blood Cell % 0 /100 WBC (0); Platelet Count 272 Thou/mm3 (140-440); RDW Standard Deviation 47.3 fL (35.1-43.9); Red Blood Count 4.22 Miln/mm3 (4.50-5.90); White Blood Count 7.5 Thou/mm3 (3.8-10.6)
[2025-06-07 20:18] LABS: Bilirubin,Urine Negative (Negative); Blood,Urine Negative (Negative); Clarity,Urine Clear (Clear/Hazy); Color,Urine Lt-Yellow (Lt Yel-Yel); Glucose, Urine Negative (Negative); Ketones,Urine Negative (Negative); Leukocyte Esterase,Urine Positive (Negative); Nitrite,Urine Negative (Negative); PH,Urine 6.5 (5.0-7.0); Protein,Urine Negative (Neg - Trace); RBC,Urine < 1 /hpf (0-3); Specific Gravity,Urine 1.017 (1.001-1.035); Squamous Epithelial Cell,Urine < 1 /hpf (0-5); Urobilinogen,Urine 2.0 mg/dL (0.0-1.0); WBC,Urine 1 /hpf (0-5)
[2025-06-07 20:47] LABS: Alanine Aminotransferase 20 U/L (10-49); Albumin, Serum 4.7 gm/dL (3.4-4.8); Albumin/Globulin Ratio 1.7 (1.2-2.2); Alkaline Phosphatase 89 U/L (46-116); Anion Gap 10 (7-16); Aspartate Amino Transferase 40 U/L (0-34); BUN/Creatinine Ratio 14 Ratio (12-20); Bilirubin,Total 0.5 mg/dL (0.3-1.2); Blood Urea Nitrogen 15 mg/dL (9-23); Calcium 9.5 mg/dL (8.3-10.6); Calcium (Corrected) 9.5 mg/dL (8.5-10.1); Carbon Dioxide 27.2 mMol/L (20.0-31.0); Chloride 105 mMol/L (98-107); Creatinine (Component) 1.1 mg/dL (0.6-1.3); Globulin 2.7 gm/dL (2.3-3.5); Glucose 97 mg/dL (74-106); Lipase 34 U/L (12-53); Osmolality,Calculated 283 (275-295); Potassium 3.7 mMol/L (3.4-5.1); Sodium 142 mMol/L (136-145); Total Protein 7.4 gm/dL (5.7-8.2); eGFR > 60 See Note
--- NOTE | 2025-06-07 21:38 | PC.NURSE ---
NO ANSWER AT ER LOBBY OR OUTSIDE ER TO BE RE EVALUATED
--- NOTE | 2025-06-07 21:45 | PC.NURSE ---
NO ANSWER AT ER LOBBY OR OUTSIDE ER TO BE RE EVALUATED.
[2025-06-07 23:51] VITALS: BP 161/99; PULSE 82; RESP 14; TEMP 37.1; O2SAT 97
[2025-06-07 23:53] VITALS: BMI 28.2; BMI 28.6
--- NOTE | 2025-06-08 00:54 | EDNOTE_ITS ---
ED Abdominal Pain RME/HPI General Chief Complaint: Abdominal Pain Stated complaint: ABDOMINAL PAIN Time seen by provider: 06/07/25 18:44 Arrival date/time: 06/07/25 17:02 RME / HPI RME / HPI narrative: 58-year-old homeless male presenting to the ED with abdominal pain. Reports ongoing abdominal pain in the epigastric region, exacerbated by spicy food and alcohol. Associated with burning sensation in esophagus and sour taste in his mouth. Denies fever, chills, headaches, chest pain, sob, cough, diarrhea, constipation, vomiting, hemoptysis, dark stool or urinary symptoms. On bedside evaluation, no evidence of acute distress, appears comfortable. He had mild epigastric pain to palpation but without guarding and negative McMurphy sign. Cardiovascular exam was unremarkable and no evidence of lower extremity swelling noted. No skin lesions noted. Vitals showed BP 161/99, HR 70?80, normal temperature, normal RR, on room air. Labs were unremarkable including lipase and renal function. AST was slightly elevated at 40, which appears to be chronic. CBC showed chronic anemia with hemoglobin 12.9 but he denies signs or symptoms of abnormal bleed including GI bleed. UA showed no UTI. [place] CT showed 16 mm fat-containing bilateral hernia, not prescient on exam, chronic degenerative disc disease L1-L2, mild to moderate prostamegaly with mild distended urinary bladder. Her symptoms are likely related to GERD/gastritis in settings of chronic alcohol use, exacerbated by spicy food. I had recommended alcohol cessation and avoiding spicy food. I prescribed PROTONIX 40 mg to be taken daily regardless of symptoms. Also prescribed MAALOX to be taken as needed for GERD flareups. Recommended follow-up with PCP if he needs to be on PROTONIX for longer, and follow-up regarding elevated blood pressure. Patient agrees to current plan and stable to be discharged. Exam: Abdominal exam mild to moderate tenderness periumbilical area no guarding no rebound no rigidity Impression: Abdominal pain Related Data Previous Rx's ?Medication ?Instructions ?Recorded ibuprofen 800 mg tablet 800 mg PO Q8H #30 tabs 05/31 Held on 06/08/25. Instructions: Resume on 06/08/25. This medication can worsen gastritis and may lead to abdominal ulcer. Please discuss with your PCP prior to resuming this medication. tramadol 50 mg tablet 50 mg PO Q8H PRN pain #8 tab s 06/01/25 gabapentin 300 mg capsule 300 mg PO QDAY NEUROPATHY #3 0 caps 06/02/25 hydrocortisone 2.5 % topical cream 1 applic topical BI D PRN itching 06/02/25 #28 grams dorzolamide-timolol (PF) 2 %-0.5 % 1 drp ophthalmic (e ye) BID #60 ea 06/05/25 eye drops in a dropperette aluminum-mag hydroxide-simethicone 5 ml PO QID PRN ind igestion #3,000 06/08/25 400 mg-400 mg-40 mg/5 mL oral susp mL (Maalox Maximum Strength) pantoprazole 40 mg tablet,delayed 40 mg PO QDAY #30 ta bs 06/08/25 release (Protonix) Allergies Allergy/AdvReac Type Severity Reaction Status Date / Time No Known Allergies Allergy Verified 06/07/25 17:36 ED Exam Narrative Physical exam: GENERAL * Normal appearing male, NAD HEENT * NCAT.?LAURENT. Oral mucosa is moist. Patent Nares NECK * Supple, nontender, no JVD. CHEST * RRR, no m/g/r * CTAB, no w/r/r, symmetrical expansion. ABDOMEN * Soft, flat, mild tenderness in the epigastrium. No guarding/rebound tenderness/masses. * Bowel sounds presents EXTREMITIES * No edema/cyanosis.? SKIN * Warm and dry, no jaundice/rashes. NEUROMUSCULAR * No lumbar or midline, no CVA, no paraspinal muscle spasm or tenderness. * Moves all 4 extremities well, with full ROM and good CSM. * VARGHESE x4, CN II-XII grossly intact. * No focal neurologic deficits. PSYCHIATRY * Normal mood and affect, cooperative, no SI or HI or hallucinations. Course Quality Measures none Orders Category Date Time Status CT abdomen pelvis wo con Stat Exams 06/07/25 18:50 Completed CBC Stat Lab 06/07/25 19:37 Completed Comprehensive Metabolic Panel Stat Lab 06/07/25 19:37 Completed Lipase Stat Lab 06/07/25 19:37 Completed Urinalysis Stat Lab 06/07/25 19:42 Completed Vital Signs Vital signs: Vital Signs Temperature 97.8 F 06/07/25 17:07 Pulse Rate 77 06/07/25 17:07 Respiratory Rate 18 06/07/25 17:07 Blood Pressure 157/92 H 06/07/25 17:07 Pulse Oximetry (%) 98 06/07/25 17:07 Oxygen Delivery Method Room Air 06/07/25 17:07 Abdominal Pain MDM Patient data External records reviewed:: [facility] previous records Clinical information provided by:: patient Social determinants that could affect healthcare access:: housing Patient has the following chronic illnesses:: GERD, unstable housing How is presenting disease/condition affected by chronic disease/condition?: exacerbated by Evaluation data The following diagnostics were reviewed and interpreted by me:: lab results and radiology exam(s) Lab and/or radiology exams considered but not ordered:: None Interpretation Summary: None Medications / Prescriptions Medications or Prescriptions considered but not ordered:: None Medication administrations:: None Consultations Consultation(s) initiated? (list below): No Diagnosis Differential diagnosis abdominal pain: abdominal pain Most likely diagnosis given after review of the tests above:: Gastritis/GERD Admission Indicated Admission indicated?: not indicated Admission Request Was there a request for admission?: No Disposition Plan Disposition Plan: Discharge Discharge Attestation Discharge Attestation: The patient and all family members were given an opportunity to ask questions and understood the discharge instructions. Discharge instructions specifically effects, indications for sooner follow up or return to the emergency department, and the expected course of current diagnosis. Patient condition: Stable Discharge Plan Plan Patient Disposition: HOME (Self Care) Patient condition on transfer: Stable Health Concerns: * Follow-up with PCP within 1-2 weeks of discharge. * Recommended avoiding alcohol and spicy food which can worsen your gastritis and may cause abdominal ulcers and bleed. * Take PROTONX 40 mg ONCE daily for 30 days. Discuss with your PCP if you should continue with this medication. * Take MAALOX 5 mL every 4 hours as needed for abdominal pain. * Recommended follow-up with PCP regarding elevated blood pressure reading. * Continue taking medications as prescribed below. * Return to Emergency Room if symptoms persist, worsen, or new symptoms develop. Prescriptions/Referrals Prescriptions/Med Rec: New pantoprazole [Protonix] 40 mg tablet,delayed release (DR/EC) 40 mg PO QDAY Qty: 30 0RF Rx Instructions: Take one tablet daily regardless of your symptoms. alum-mag hydroxide-simeth [Maalox Maximum Strength] 400-400-40 mg/5 mL suspension 5 ml PO QID PRN (Reason: indigestion) Qty: 3000 0RF Rx Instructions: Take 5 mL every 5 hours as needed for abdominal pain. Continued dorzolamide-timolol (PF) 2-0.5 % dropperette 1 drp ophthalmic (eye) BID Qty: 60 0RF tramadol 50 mg tablet 50 mg PO Q8H MDD max 4 tabs per day PRN (Reason: pain) Qty: 8 0RF gabapentin 300 mg capsule 300 mg PO QDAY MDD 1 Qty: 30 0RF hydrocortisone 2.5 % cream 1 applic topical BID MDD 2 APPLICATIONS PRN (Reason: itching) Qty: 28 0RF Held ibuprofen 800 mg tablet 800 mg PO Q8H Qty: 30 0RF Hold Instructions: Resume on 06/08/25. This medication can worsen gastritis and may lead to abdominal ulcer. Please discuss with your PCP prior to resuming this medication. Discontinued ibuprofen 800 mg tablet 800 mg PO Q6H PRN (Reason: pain) Qty: 10 0RF Referrals: Rk Molina MD [Primary Care Provider, Family Practice] - In 1 week Problem List Clinical Impression: Gastroenteritis, Abdominal pain, Chronic GERD Patient/Caregiver Discharge Instructions Print Language: Moldovan Stand Alone Forms: Jaye Award Info., Patient Portal Info Letter
[2025-06-08 01:22] VITALS: BP 124/67; PULSE 74; RESP 15; TEMP 36.9; O2SAT 100
== END 2025-06-08 01:23 | disposition home or self-care (01) ==
PROVIDERS: Nurse Practitioner Family; Emergency Provider Emergency Medicine; PCP Family Medicine
DX: K52.9 Noninfective gastroenteritis and colitis, unspecified (principal); K21.9 Gastro-esophageal reflux disease without esophagitis; N32.89 Other specified disorders of bladder; N40.0 Benign prostatic hyperplasia without lower urinary tract symptoms; M51.369 Other intervertebral disc degeneration, lumbar region without mention of lumbar back pain or lower extremity pain; K42.9 Umbilical hernia without obstruction or gangrene; Z59.00 Homelessness unspecified
CPT/HCPCS: 36415; 74176; 80053; 81001; 83690; 85025; 99283